=== PATIENT | male | born 1990 | race African-American/Black ===

== ENCOUNTER 2016-12-21 15:09 | Inpatient (IN) | payer OTHER, MEDICAID ==
[~2016-12-21] VITALS: Ht 172.7 cm; Wt 59.6 kg
[~2016-12-21 15:09] MED LIST: CITA10TA68 PO; RISP2L PO
[2016-12-21] MEDS ORDERED: LORazepam 2 MG/ML VIAL IM ONE (15:45)
[2016-12-21] MEDS ORDERED: DiphenhydrAMINE HCL 50 MG/ML VIAL IM ONE (15:45)
[2016-12-21] MEDS ORDERED: HALOPERIDOL 5 MG TABLET PO PRN (15:45)
[2016-12-21] MEDS ORDERED: HALOPERIDOL LACTATE 5 MG/ML VIAL IM ONE (15:45)
[2016-12-21] MEDS ORDERED: ZOLPIDEM TARTRATE 10 MG TABLET PO PRN (15:45)
[2016-12-21 16:05] VITALS: BP 125/71
[2016-12-21 16:57] VITALS: BP 101/67
[2016-12-22 01:18] VITALS: BP 121/65
[2016-12-22 07:22] LABS: BASOPHILS % (AUTO) 0.7 % (0.0-2.0); EOSINOPHILS % (AUTO) 7.9 % (1.0-6.0); HEMATOCRIT 42.3 % (41-53); HEMOGLOBIN 14.4 g/dL (13.5-17.5); LYMPHOCYTES # (AUTO) 2.1 K/uL (1.0-4.8); LYMPHOCYTES % (AUTO) 47.2 % (22.0-44.0); MEAN CORPUSCULAR HEMOGLOBIN 29.6 pg (26.0-34.0); MEAN CORPUSCULAR VOLUME 87 fL (80-100); MONOCYTES # (AUTO) 0.5 K/uL (0.1-1.0); MONOCYTES % (AUTO) 10.3 % (2.0-9.0); NEUTROPHILS # (AUTO) 1.5 K/uL (1.8-7.7); NEUTROPHILS % (AUTO) 33.9 % (40.0-70.0); PLATELET COUNT (AUTO) 312 K/uL (150-450); RED BLOOD CELL COUNT(AUTO) 4.86 MIL/uL (4.50-5.90); RED CELL DISTRIBUTION WIDTH 12.8 % (11.5-14.5); WHITE BLOOD COUNT (AUTO) 4.6 K/uL (4.5-11.0)
[2016-12-22 08:19] LABS: ALANINE AMINOTRANSFERASE 31 U/L (12-78); ALBUMIN 3.3 g/dL (3.4-5.0); ANION GAP 7 mmol/L (8-16); ASPARTATE AMINOTRANSFERASE 36 U/L (15-37); BILIRUBIN,TOTAL 0.3 mg/dL (0.1-1.0); CALCIUM, TOTAL 8.9 mg/dL (8.8-10.5); CARBON DIOXIDE 28 mmol/L (22-29); CHLORIDE 105 mmol/L (98-107); CHOL/HDL RATIO 2.6 (4.2-7.3); CREATININE 0.86 mg/dL (0.60-1.30); GLOMERULAR FILTR. RATE CALC > 60 mL/min (>60); POTASSIUM 4.4 mmol/L (3.5-5.1); SODIUM SERUM 140 mmol/L (136-145); THYROID STIMULATING HORMONE 0.48 uIU/mL (0.36-3.74); UREA NITROGEN, BLOOD 13 mg/dL (7-18)
[2016-12-22] MEDS: LORazepam 2 MG TABLET PO PRN ×2 (08:22→20:06)
[2016-12-22] MEDS ORDERED: ONDANSETRON HCL 4 MG TABLET PO PRN (08:30)
[2016-12-22] MEDS ORDERED: BENZOCAINE/MENTHOL LOZENGE MM PRN (08:30)
[2016-12-22] MEDS ORDERED: LOPERAMIDE HCL 2 MG CAPSULE PO PRN (08:30)
[2016-12-22] MEDS ORDERED: PETROLATUM,WHITE 71 GM JELLY TP PRN (08:30)
[2016-12-22] MEDS ORDERED: ALBUTEROL SULFATE HFA 90 MCG/PUFF 8 GM INHALER IH PRN (08:30)
[2016-12-22] MEDS ORDERED: IBUPROFEN 600 MG TABLET PO PRN (08:30)
[2016-12-22] MEDS ORDERED: MAG HYDROX/AL HYDROX/SIMETH ES 30 ML SUSPENSION UDCUP PO PRN (08:30)
[2016-12-22] MEDS ORDERED: ACETAMINOPHEN 325 MG TABLET PO PRN (08:30)
[2016-12-22] MEDS ORDERED: MAGNESIUM HYDROXIDE SUSPENSION 30 ML UDCUP PO PRN (08:30)
[2016-12-22] MEDS ORDERED: BACITRACIN 28.4 GM OINTMENT TP PRN (08:30)
[2016-12-22] MEDS ORDERED: CloNIDine HCL 0.1 MG TABLET PO PRN (08:30)
[2016-12-22 08:48] VITALS: BP 122/84
[2016-12-22] MEDS: RisperiDONE 2 MG TABLET PO SCH ×2 (09:46→20:06)
[2016-12-22] MEDS: CITALOPRAM HYDROBROMIDE 10 MG TABLET PO SCH (09:46)
[2016-12-22 16:27] VITALS: BP 105/64
[2016-12-23 06:18] VITALS: BP 112/61
[2016-12-23 08:05] VITALS: BP 107/56
[2016-12-23] MEDS: RisperiDONE 2 MG TABLET PO SCH ×2 (09:08→21:15)
[2016-12-23] MEDS: CITALOPRAM HYDROBROMIDE 10 MG TABLET PO SCH (09:08)
[2016-12-23] MEDS ORDERED: LORazepam 2 MG/ML VIAL ONE (10:33)
[2016-12-23] MEDS ORDERED: HALOPERIDOL LACTATE 5 MG/ML VIAL ONE (10:33)
[2016-12-23] MEDS ORDERED: DiphenhydrAMINE HCL 50 MG/ML VIAL ONE (10:33)
[2016-12-23 16:00] VITALS: BP 118/68
[2016-12-23] MEDS: LORazepam 2 MG TABLET PO PRN (17:00)
[2016-12-24 02:31] VITALS: BP 110/69
[2016-12-24 08:36] VITALS: BP 120/62
[2016-12-24] MEDS: LORazepam 2 MG TABLET PO PRN ×2 (09:10→21:17)
[2016-12-24] MEDS: CITALOPRAM HYDROBROMIDE 10 MG TABLET PO SCH (09:11)
[2016-12-24] MEDS: RisperiDONE 2 MG TABLET PO SCH ×2 (09:11→21:17)
[2016-12-24 16:00] VITALS: BP 108/72
[2016-12-25 06:10] VITALS: BP 106/67
[2016-12-25 08:02] VITALS: BP 109/72
[2016-12-25] MEDS: LORazepam 2 MG TABLET PO PRN (08:48)
[2016-12-25] MEDS: CITALOPRAM HYDROBROMIDE 10 MG TABLET PO SCH (08:48)
[2016-12-25] MEDS: RisperiDONE 2 MG TABLET PO SCH (08:48)
[2016-12-25] MEDS ORDERED: NICOTINE 21 MG/24 HOUR PATCH TD SCH (11:45)
[2016-12-25] MEDS ORDERED: RISP2 PO (13:42)
== END 2016-12-25 17:05 | disposition home or self-care (01) | DRG 885 ==
LOC: B3A 15:38 → EDBD 15:38
DX: F25.1 Schizoaffective disorder, depressive type (principal); E46 Unspecified protein-calorie malnutrition; R45.851 Suicidal ideations; F22 Delusional disorders; K59.00 Constipation, unspecified; J45.909 Unspecified asthma, uncomplicated; Y90.9 Presence of alcohol in blood, level not specified; F10.10 Alcohol abuse, uncomplicated; F12.10 Cannabis abuse, uncomplicated; Z72.0 Tobacco use; Z59.0 Homelessness; Z79.899 Other long term (current) drug therapy; Z71.41 Alcohol abuse counseling and surveillance of alcoholic; Z71.51 Drug abuse counseling and surveillance of drug abuser; Z71.6 Tobacco abuse counseling; Z68.20 Body mass index [BMI] 20.0-20.9, adult
CPT/HCPCS: 84436; 84439; 84443; 86592; J1200; J1630; J2060